=== PATIENT | female | born 1995 | race Caucasian/White ===

== ENCOUNTER → 2017-10-16 | Outpatient (REF) | payer OTHER ==
[2017-10-16 19:54] LABS: FREE T4 1.42 NG/DL (0.76-1.46)
== END ==
LOC: M SFHCADAM 14:13
DX: F33.1 Major depressive disorder, recurrent, moderate (principal)

== ENCOUNTER → 2018-06-29 | Outpatient (REF) | payer OTHER ==
[~2018-06-29] MED LIST: CONC54TA4 PO; HYDRO50TAB PO; PARO12.5 PO; TRAZO50TA PO; VENTAER INH; ZOLO100T PO; ZOLO50TA PO
[2018-06-30 01:44] LABS: CHLAMYDIA DNA AMPLIFICATION NEGATIVE (NEGATIVE); GC DNA AMPLIFICATION NEGATIVE (NEGATIVE)
== END ==
LOC: M SFHCADAM 12:30
PROVIDERS: ATTEND Physician Assistant Medical
DX: Z12.4 Encounter for screening for malignant neoplasm of cervix (principal)
CPT/HCPCS: 87491; 87591; G0123

== ENCOUNTER 2018-07-11 00:40 | Emergency (ER) | payer OTHER ==
[~2018-07-11] VITALS: Ht 165.1 cm; Wt 75.5 kg
[2018-07-11] MEDS ORDERED: PREVTAB2 (00:45)
[2018-07-11] MEDS ORDERED: ESCI20TA (00:45)
[2018-07-11] MEDS ORDERED: VYVA50CA4 (00:45)
[2018-07-11] MEDS ORDERED: NS 1,000 ML IV ONE (05:00)
[2018-07-11] MEDS ORDERED: KETOROLAC 30 MG/ML VIAL (J1885) IV ONE (05:00)
[2018-07-11 05:52] LABS: BASO # 0.1 10^3/uL (0.0-0.2); BASO % 0.5 % (0.0-1.0); EOS # 0.2 10^3/uL (0.0-0.50); EOS % 1.5 % (0.0-3.0); HEMATOCRIT 39.7 % (36.0-47.0); HEMOGLOBIN 13.9 g/dl (12.0-15.5); LYMPH # 3.2 10^3/uL (1.5-6.5); LYMPH % 27.1 % (24.0-44.0); MEAN CORPUSCULAR HEMOGLOBIN 31.4 pg (27.0-33.0); MEAN CORPUSCULAR VOLUME 89.6 fl (80.0-96.0); MONO # 0.9 10^3/uL (0.0-0.8); MONO % 7.8 % (0.0-5.0); NEUTROPHILS # 7.4 10^3/uL (1.8-7.7); NEUTROPHILS % 62.9 % (36.0-66.0); PLATELET COUNT, AUTOMATED 404 10^3/uL (150-450); RED BLOOD COUNT 4.43 10^6/uL (4.00-5.40); WHITE BLOOD COUNT 11.8 10^3/uL (4.0-10.0)
[2018-07-11 06:18] LABS: HCG, SERUM QUALITATIVE NEGATIVE (NEGATIVE)
[2018-07-11 06:35] LABS: ALBUMIN 4.2 GM/DL (3.2-5.2); ALT/SGPT 16 U/L (12-78); BILIRUBIN,DIRECT 0.1 MG/DL (0.0-0.2); BILIRUBIN,TOTAL 0.4 MG/DL (0.2-1.0); BLOOD UREA NITROGEN 15 MG/DL (7-18); CALCIUM LEVEL 8.6 MG/DL (8.5-10.1); CARBON DIOXIDE LEVEL 26 MEQ/L (21-32); CHLORIDE LEVEL 107 MEQ/L (98-107); CREATININE FOR GFR 0.84 MG/DL (0.55-1.30); GLOMERULAR FILTRATION RATE > 60.0 (>60); GLUCOSE, FASTING 89 MG/DL (70-100); LIPASE 170 U/L (73-393); POTASSIUM SERUM 4.2 MEQ/L (3.5-5.1); SODIUM LEVEL 139 MEQ/L (136-145); TOTAL PROTEIN 7.1 GM/DL (6.4-8.2)
[2018-07-11 07:06] LABS: CHLAMYDIA DNA AMPLIFICATION NEGATIVE (NEGATIVE); GC DNA AMPLIFICATION NEGATIVE (NEGATIVE)
--- NOTE | 2018-07-11 08:45 | REPVR ---
EXAM: US Duplex Artery or Vein of the Abdominal and/or Reproductive Organs, Limited Ovaries EXAM DATE/TIME: 07/11/2018 6:56 AM CLINICAL HISTORY: 22 years old, female; Pelvic pain; Additional info: Right adnexal pain TECHNIQUE: Imaging protocol: Real-time duplex ultrasound scan of the arterial or venous flow with woodruff scale, color Doppler flow and spectral waveform analysis. Limited duplex exam focused on the ovaries. Duplex exam was performed to evaluate for ovarian torsion or mass. COMPARISON: No relevant prior studies available. FINDINGS: Right adnexa: Normal duplex of the ovary. Normal Doppler waveforms and color flow. No evidence of ovarian torsion. Resistive index 0.51 Left adnexa: Normal duplex of the ovary. Normal Doppler waveforms and color flow. No evidence of ovarian torsion. Resistive index 0.52 IMPRESSION: No sonographic evidence of ovarian torsion. See complete pelvic ultrasound report. EXAM: US Pelvis Complete, Transabdominal and US Pelvis, Transvaginal EXAM DATE/TIME: 07/11/2018 6:56 AM CLINICAL HISTORY: 22 years old, female; Pelvic pain; Additional info: Right adnexal pain TECHNIQUE: Imaging protocol: Real-time transabdominal and transvaginal pelvic ultrasound (complete) with image documentation. Transvaginal imaging was used for better evaluation of the endometrium and adnexa. COMPARISON: No relevant prior studies available. FINDINGS: Uterus/cervix: The uterus is normal in size, shape and echotexture measuring 7.2 x 2.9 x 4.2 cm. The endometrial stripe is normal in thickness measuring 8-9 mm transvaginally. Right adnexa: The right ovary measures 4.3 x 2.7 x 3.7 cm and contains a 1.7 x 1.5 x 2.2 cm complex cyst with an irregular contour and low level internal echoes. No adnexal masses. Left adnexa: The left ovary measures 2.4 x 1.9 x 1.7 cm and is unremarkable in appearance. No adnexal masses. Free fluid: Trace free fluid. Bladder: Partially distended urinary bladder is unremarkable. IMPRESSION: 1. There is a 1.7 x 1.5 x 2.2 cm complex right ovarian cyst, likely a functional involuting or collapsing cyst. 2. Trace free fluid. Electronically signed by: Joshua Gillette On 07/11/2018 08:45:12 AM
[2018-07-11] MEDS ORDERED: NAPR-837 PO (08:51)
[2018-07-11 09:05] VITALS: BP 119/71
== END 2018-07-11 09:13 | disposition home or self-care (01) ==
LOC: M ED 00:40
DX: N83.201 Unspecified ovarian cyst, right side (principal); I10 Essential (primary) hypertension; Z79.3 Long term (current) use of hormonal contraceptives; Z79.899 Other long term (current) drug therapy
CPT/HCPCS: 76830; 76856; 80048; 80076; 81001; 83690; 84703; 85025; 87210; 87491; 87591; 93976; 96361; 96374; 99284; J1885

== ENCOUNTER → 2018-08-25 | Outpatient (REF) | payer OTHER ==
[~2018-08-25] MED LIST changes: +ESCI20TA; +NAPR-837 PO; +PREVTAB2; +TRAZ1TAB10 PO; -TRAZO50TA PO; +VYVA50CA4
[2018-08-25 12:54] LABS: MONO SCRN NEGATIVE (NEGATIVE)
[2018-08-25 13:01] LABS: ALBUMIN 3.7 GM/DL (3.2-5.2); ALT/SGPT 22 U/L (12-78); BILIRUBIN,TOTAL 0.3 MG/DL (0.2-1.0); BLOOD UREA NITROGEN 8 MG/DL (7-18); CARBON DIOXIDE LEVEL 26 MEQ/L (21-32); CHLORIDE LEVEL 106 MEQ/L (98-107); CREATININE FOR GFR 0.97 MG/DL (0.55-1.30); GLOMERULAR FILTRATION RATE > 60.0 (>60); GLUCOSE, FASTING 113 MG/DL (70-100); POTASSIUM SERUM 3.4 MEQ/L (3.5-5.1); SODIUM LEVEL 141 MEQ/L (136-145); TOTAL PROTEIN 7.5 GM/DL (6.4-8.2)
[2018-08-25 13:09] LABS: BASO # 0.1 10^3/uL (0.0-0.2); BASO % 0.7 % (0.0-1.0); EOS # 0.1 10^3/uL (0.0-0.50); EOS % 1.3 % (0.0-3.0); HEMATOCRIT 40.6 % (36.0-47.0); HEMOGLOBIN 13.8 g/dl (12.0-15.5); LYMPH # 2.7 10^3/uL (1.5-6.5); LYMPH % 36.6 % (24.0-44.0); MEAN CORPUSCULAR HEMOGLOBIN 31.1 pg (27.0-33.0); MEAN CORPUSCULAR VOLUME 91.4 fl (80.0-96.0); MONO # 0.5 10^3/uL (0.0-0.8); MONO % 6.6 % (0.0-5.0); NEUTROPHILS % 54.5 % (36.0-66.0); PLATELET COUNT, AUTOMATED 434 10^3/uL (150-450); RED BLOOD COUNT 4.44 10^6/uL (4.00-5.40); WHITE BLOOD COUNT 7.4 10^3/uL (4.0-10.0)
[2018-08-27 00:09] LABS: Lyme Disease IgG/IgM Antibodie <0.91 ISR (0.00-0.90); Lyme Disease IgM Ab Quantitati <0.80 index (0.00-0.79)
== END ==
LOC: M LABDRWAD 12:11
PROVIDERS: ATTEND Physician Assistant
DX: R53.81 Other malaise (principal)

== ENCOUNTER → 2018-08-27 | Outpatient (CLI) | payer OTHER ==
--- NOTE | 2018-08-28 08:52 | REP ---
NON-OB PELVIC ULTRASOUND: HISTORY: Right ovarian cyst. COMPARISON: 07/11/2018 The uterus measures 3.9 cm in transverse x 3.1 cm in AP x 6.8 cm in cephalocaudal dimensions. The endometrium measures 7.1 mm. The right ovary measures 4.4 x 1.5 x 1.5 cm. The left ovary measures 3.8 x 1.7 x 3.1 cm. There is no fluid in the cul-de-sac. IMPRESSION: Normal pelvic ultrasound. Electronically Signed by Josh Polk MD 08/28/2018 09:03 A
== END ==
LOC: M RAD 17:29
PROVIDERS: ATTEND Physician Assistant Medical
DX: N83.201 Unspecified ovarian cyst, right side (principal)

== ENCOUNTER 2018-10-16 17:57 | Emergency (ER) | payer OTHER ==
[~2018-10-16 17:57] MED LIST changes: +HYDR1TAB33 PO; -HYDRO50TAB PO
[2018-10-16] MEDS ORDERED: PROP10TA56 (18:31)
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
[2018-10-16 22:00] VITALS: BP 131/82
== END 2018-10-16 22:17 | disposition home or self-care (01) ==
LOC: EDBD 17:57 → M ED 17:57
DX: S80.212A Abrasion, left knee, initial encounter (principal); T24.201A Burn of second degree of unspecified site of right lower limb, except ankle and foot, initial encounter; V43.52XA Car driver injured in collision with other type car in traffic accident, initial encounter; Y92.410 Unspecified street and highway as the place of occurrence of the external cause; Z79.3 Long term (current) use of hormonal contraceptives; Z88.0 Allergy status to penicillin; Z88.5 Allergy status to narcotic agent; Z88.8 Allergy status to other drugs, medicaments and biological substances

== ENCOUNTER → 2019-05-27 | Outpatient (REF) | payer OTHER ==
[~2019-05-27] MED LIST changes: -PARO12.5 PO; +PARO12.510 PO; +PROP10TA56
[2019-05-27 16:24] LABS: BASO % 0.5 % (0.0-1.0); EOS # 0.1 10^3/uL (0.0-0.5); EOS % 1.4 % (0.0-3.0); HEMATOCRIT 39.8 % (36.0-47.0); LYMPH # 2.9 10^3/uL (1.5-5.0); LYMPH % 36.8 % (24.0-44.0); MEAN CORPUSCULAR HEMOGLOBIN 30.9 pg (27.0-33.0); MEAN CORPUSCULAR HGB CONC 32.7 g/dl (32.0-36.5); MEAN CORPUSCULAR VOLUME 94.5 fl (80.0-96.0); MONO # 0.5 10^3/uL (0.0-0.8); MONO % 6.4 % (0.0-5.0); NEUTROPHILS # 4.3 10^3/uL (1.5-8.5); NEUTROPHILS % 54.6 % (36.0-66.0); PLATELET COUNT, AUTOMATED 413 10^3/uL (150-450); RED BLOOD COUNT 4.21 10^6/uL (4.00-5.40); WHITE BLOOD COUNT 7.9 10^3/uL (4.0-10.0)
[2019-05-27 17:01] LABS: FREE T4 1.14 NG/DL (0.76-1.46); THYROID STIMULATING HORMONE 1.35 uIU/ML (0.358-3.740); TOTAL 25(OH) VITAMIN D 32.5 NG/ML (30.0-100.0)
== END ==
LOC: M SFHCADAM 14:24
PROVIDERS: ATTEND Physician Assistant Medical
DX: F33.1 Major depressive disorder, recurrent, moderate (principal); Z13.21 Encounter for screening for nutritional disorder; Z13.0 Encounter for screening for diseases of the blood and blood-forming organs and certain disorders involving the immune mechanism; Z13.29 Encounter for screening for other suspected endocrine disorder

== ENCOUNTER → 2020-02-13 | Outpatient (REF) | payer OTHER | LOC: M SFHCADAM 16:20 | PROVIDERS: ATTEND Physician Assistant Medical | DX: R11.0 Nausea (principal); R19.7 Diarrhea, unspecified; R68.83 Chills (without fever); R63.0 Anorexia ==

== ENCOUNTER 2022-02-16 13:12 | Emergency (ER) | payer BC, OTHER ==
[~2022-02-16] VITALS: Ht 167.6 cm; Wt 85.5 kg
[~2022-02-16 13:12] MED LIST changes: -ESCI20TA; +ESCI20TA16; -PARO12.510 PO; +PARO12.56 PO
[2022-02-16 13:13] VITALS: BP 131/75
[2022-02-16] MEDS ORDERED: LEXA1TAB2 PO (13:28)
[2022-02-16] MEDS ORDERED: BUPR300T92 PO (13:28)
[2022-02-16] MEDS ORDERED: VYVA60CA PO (13:28)
[2022-02-16] MEDS ORDERED: VITA200016 PO (13:28)
[2022-02-16] MEDS ORDERED: ACETAMINOPHEN 500 MG TAB PO ONE (13:55)
[2022-02-16] MEDS ORDERED: IBUPROFEN 600MG TAB PO ONE (13:55)
== END 2022-02-16 14:22 | disposition home or self-care (01) ==
LOC: M ED 13:12
DX: J09.X2 Influenza due to identified novel influenza A virus with other respiratory manifestations (principal); Z88.1 Allergy status to other antibiotic agents; Z88.5 Allergy status to narcotic agent; Z79.51 Long term (current) use of inhaled steroids; Z79.899 Other long term (current) drug therapy

== ENCOUNTER 2022-04-13 15:45 | Emergency (ER) | payer BC, OTHER ==
[~2022-04-13] VITALS: Ht 167.6 cm; Wt 94.8 kg
[~2022-04-13 15:45] MED LIST changes: +BUPR300T92 PO; +LEXA1TAB2 PO; +VITA200016 PO; +VYVA60CA PO
[2022-04-13] MEDS ORDERED: PRAZ1CAP (16:34)
[2022-04-13 21:28] VITALS: BP 135/73
[2022-04-13] MEDS ORDERED: ONDANSETRON 4MG ORAL DISINTEGRATING TAB PO ONE (21:35)
[2022-04-13] MEDS ORDERED: ACETAMINOPHEN TAB 650MG DOSE (2X325MG) PO ONE (21:35)
[2022-04-14] MEDS ORDERED: ONDA4TAB6 PO (00:08)
== END 2022-04-14 01:13 | disposition home or self-care (01) ==
LOC: M ED 15:45
DX: A09 Infectious gastroenteritis and colitis, unspecified (principal); F41.9 Anxiety disorder, unspecified; F90.9 Attention-deficit hyperactivity disorder, unspecified type; F10.10 Alcohol abuse, uncomplicated; Z88.1 Allergy status to other antibiotic agents; Z88.5 Allergy status to narcotic agent; Z79.811 Long term (current) use of aromatase inhibitors; Z79.899 Other long term (current) drug therapy